=== PATIENT | female | born 1940 | race Caucasian/White ===

== ENCOUNTER → 2016-06-19 | Outpatient (CLI) | payer OTHER, BC ==
[~2016-06-19] MED LIST: ACETTAB14 PO; ALL100 PO; ASPI-113 PO; ATOR-24 PO; CHOL100010 PO; CLB200 PO; CLOP1TAB15 PO; DIPH25CA65 PO; DOCU100C PO; ISOS60TA25 PO; LEVO137T3 PO; LEVO150T9 PO; METO1TAB69 PO; METO50TA7 PO; NXM/40 PO; OXYC-643 PO; OXYC7.5T78 PO; VITA1TAB4 PO; VITA400C15 PO
[2016-06-19 12:17] LABS: BASO % 0.6 %; BASO ABS # 0.03 K/uL (0-0.2); COMPLETE YES; HEMATOCRIT 37.6 % (37-47); LYMPH % 35.6 %; LYMPH ABS # 1.79 K/uL (1.2-3.4); MEAN CORPUSCULAR HEMOGLOBIN 29.5 pg (25-34); MEAN CORPUSCULAR HGB CONC 32.4 g/dl (32-36); MEAN PLATELET VOLUME 11.4 fL (7.4-10.4); MONO % 8.7 %; NEUT % 50.1 %; PLATELET COUNT 152 K/uL (130-400); RED BLOOD COUNT 4.13 M/uL (4.2-5.4); WHITE BLOOD COUNT 5.03 K/uL (4.8-10.8)
[2016-06-19 12:38] LABS: ALT/SGPT 16 U/L (12-78); AST/SGOT 9 U/L (15-37); BLOOD UREA NITROGEN 37 mg/dl (7-18); BUN/CREATININE RATIO 18.6 (10-20); CALCIUM 9.6 mg/dl (8.5-10.1); CARBON DIOXIDE 25 mmol/L (21-32); CHLORIDE 112 mmol/L (98-107); GLUCOSE 89 mg/dl (70-99); POTASSIUM 4.9 mmol/L (3.5-5.1); SODIUM 145 mmol/L (136-145)
[2016-06-19 12:46] LABS: ALKALINE PHOSPHATASE 113 U/L (45-117); CHOLESTEROL 136 mg/dl (0-200); CHOLESTEROL/HDL RATIO 3.2; HDL CHOLESTEROL 42 mg/dl; LDL CHOLESTEROL CALCULATED 56 mg/dl; THYROID STIMULATING HORMONE 0.068 uIu/ml (0.300-4.500); TRIGLYCERIDES 189 mg/dl (0-150); VERY LOW DENSITY LIPOPROT CALC 38 mg/dl
[2016-06-19 12:58] LABS: ESTIMATED AVERAGE GLUCOSE 117 mg/dl; HA1C FLAG Normal (Normal)
--- NOTE | 2016-06-23 13:48 | CODING QUERY MEDICAL NECESSITY ---
SUPPORTING DIAGNOSIS NEEDED A supporting diagnosis is required for the test/procedure performed on this patient in order for us to be reimbursed by the patient's insurance. Please provide a supporting diagnosis for the following test/procedure listed below next to the test name along with your signature. *If there is no additional diagnosis for this patient that would support the following test/procedure please document that below next to the test/procedure. Test(s)/Procedure(s) that require a supporting diagnosis: DOS 06/19 * Vitamin D DIAGNOSIS: * Vitamin B12 DIAGNOSIS: * Hba1c DIAGNOSIS: * TSH DIAGNOSIS: Provider Signature: Date: Thank you Tiarra Culp Health Information Management Once completed, please kindly fax back to [phone] For questions please call [phone]
== END | disposition home or self-care (01) ==
LOC: C.LAB 11:39
PROVIDERS: ATTEND Internal Medicine
DX: Z00.00 Encounter for general adult medical examination without abnormal findings (principal); R53.83 Other fatigue; D64.9 Anemia, unspecified; R73.01 Impaired fasting glucose; E03.9 Hypothyroidism, unspecified

== ENCOUNTER 2016-10-08 21:48 | Inpatient (IN) | payer OTHER, BC ==
[~2016-10-08] VITALS: Ht 172.7 cm; Wt 93.3 kg
[~2016-10-08 21:48] MED LIST changes: -DOCU100C PO; -LEVO150T9 PO; -METO1TAB69 PO; -OXYC-643 PO; -VITA1TAB4 PO
[2016-10-08 21:53] VITALS: Ht 172.7 cm; Wt 93.3 kg
[2016-10-08] MEDS ORDERED: SODIUM CHLORIDE 0.9% 1000ML 1,000 ML IV STA (21:57)
[2016-10-08 22:03] LABS: HEMATOCRIT 37.7 % (37-47); MEAN CELL VOLUME 95.4 fL (80-100); MEAN CORPUSCULAR HEMOGLOBIN 28.1 pg (25-34); MEAN CORPUSCULAR HGB CONC 29.4 g/dl (32-36); MEAN PLATELET VOLUME 10.7 fL (7.4-10.4); PLATELET COUNT 208 K/uL (130-400); RED BLOOD COUNT 3.95 M/uL (4.2-5.4); WHITE BLOOD COUNT 8.88 K/uL (4.8-10.8)
[2016-10-08 22:13] LABS: INR 1.1 (0.9-1.1); PARTIAL THROMBOPLASTIN RATIO 0.8; PROTHROMBIN TIME (PATIENT) 11.4 SECONDS (9.0-12.0)
[2016-10-08 22:18] LABS: CREATININE 2.4 mg/dl (0.60-1.20); POTASSIUM 5.4 mmol/L (3.5-5.1)
[2016-10-08 22:24] LABS: CKMB/CK RATIO 3.3 (0-3.0)
[2016-10-08 22:26] LABS: CALCIUM 8.5 mg/dl (8.5-10.1)
--- NOTE | 2016-10-08 22:28 | EMERGENCY ROOM VISIT NOTE ---
History Report prepared by Mitchel: Marline Turner Under the Supervision of: Dr. Stuart Roland D.O. 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 The patient's family called EMS after the patient had sudden back pain. She then slumped down started having left sided weakness and facial droop. The patient has a history of AAA. She is on Plavix. The history is limited due to the patient's AMS. 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 Review of Systems See HPI for pertinent positives & negatives. A total of 10 systems reviewed and were otherwise negative. Past Medical & Surgical Medical Problems: (1) AAA (abdominal aortic aneurysm) (2) Atrial fibrillation by electrocardiogram (3) Atrial fibrillation with RVR Family History No pertinent family history stated. Social History Smoking Status: Former Smoker Alcohol Use: none Drug Use: none Marital Status: single Housing Status: lives with family Current/Historical Medications Scheduled Acetaminophen-Caffeine (Excedrin Tension Headache), 1 TAB PO DAILY Allopurinol (Allopurinol), 100 MG PO QAM Aspirin Enteric Coated (Ecotrin Or Generic), 325 MG PO QAM Atorvastatin (Lipitor), 40 MG PO QPM Celecoxib (Celebrex), 200 MG PO QAM Clopidogrel (Plavix), 75 MG PO QAM Docusate Sodium (Stool Softener), 100 MG PO DAILY Esomeprazole Magnesium (Nexium), 40 MG PO QAM Isosorbide Mononitrate Ext Rel (Imdur Ext Rel), 60 MG PO QAM Levothyroxine Sodium (Levothyroxine Sodium), 150 MCG PO QAM Metoprolol Succ (Toprol Xl) (Toprol-Xl), 50 MG PO QPM Metoprolol Succ (Toprol Xl) (Toprol-Xl ), 100 MG PO QAM Vitamin E (Vitamin E), 400 INTER.UNIT PO DAILY Scheduled PRN Diphenhydramine Hcl (Benadryl Allergy), 25 MG PO HS PRN for Sleep Oxycodone/Acetaminophen 5MG/325MG (Oxycodone/Acetaminophen 5MG/325MG), 1-2 TABLET PO Q6 PRN for Pain Allergies Coded Allergies: Amitriptyline (Unverified Adverse Reaction, Mild, drowsiness, 10/08/16) Gabapentin (Unverified Adverse Reaction, Mild, drowsiness, 10/08/16) Nortriptyline (Unverified Adverse Reaction, Unknown, sleeplessness, ) Physical Exam Vital Signs Date Time Temp Pulse Resp B/P (MAP) Pulse Ox O2 Delivery O2 Flow Rate FiO2 10/08/16 23:32 36.5 45 22 92/59 100 10/08/16 23:22 45 92/59 10/08/16 23:11 47 100 Nasal Cannula 5.0 82/41 10/08/16 23:01 47 22 89/63 10/08/16 23:00 48 10/08/16 22:41 36.5 53 30 97 Nasal Cannula 5.0 95/58 10/08/16 22:31 56 32 100 Nasal Cannula 5.0 153/104 10/08/16 22:15 74 10/08/16 22:15 36.6 65 28 86/40 97 Nasal Cannula 5.0 10/08/16 21:53 73 32 74/32 98 Nasal Cannula Physical Exam GENERAL: Patient is listless but responds to verbal commands. Patient is moaning in pain. EYES: The conjunctivae are clear. The pupils are round and reactive. EARS, NOSE, MOUTH AND THROAT: The nose is without any evidence of any deformity. Mucous membranes are moist tongue is midline NECK: The neck is nontender and supple. RESPIRATORY: Shallow respirations are noted. Diminished breath sounds noted throughout. No tachypnea was appreciated. CARDIOVASCULAR: Regular rate and rhythm noted there no murmurs rubs or gallops normal S1 normal S2 GASTROINTESTINAL: Abdomen is moderately distended and diffusely tender. MUSCULOSKELETAL/EXTREMITIES: There is no evidence of gross deformity full range of motion is noted in the hips and shoulders SKIN: Pedal edema was noted bilaterally. Skin is mottled especially in the lower extremities. Skin is cool and diaphoretic. Pulses were symmetric in the groin but diminished bilaterally. NEUROLOGIC: Patient was awake and alert. Patient appears to have diminished strength in the left upper extremity as well as left lower extremity. No facial droop is noted. Medical Decision & Procedures ER Provider Diagnostic Interpretation: Radiology results as stated below per my review and radiologist interpretation: HEAD CT NONCONTRAST CT DOSE: 3485.04 mGy.cm HISTORY: LEFT WEAKNESS TECHNIQUE: Multiaxial CT images of the head were performed without the use of intravenous contrast. Automated exposure control was utilized for this study. Comparison: None. Findings: The paranasal sinuses and mastoid air cells are clear. The calvarium and skull base are intact. There is no mass, hematoma, midline shift, acute infarct. White matter hypodensity is nonspecific but suggestive of microvascular ischemic change. The ventricles and sulci demonstrate mild age-related involutional changes. Impression: No acute intracranial abnormality. Electronically signed by: Yann Ortega M.D. 10/08/2016 10:41 PM Dictated Date/Time: 10/08/2016 10:38 PM CHEST, ABDOMEN, AND PELVIS CTA for AORTIC DISSECTION CT DOSE: HISTORY: TECHNIQUE: Multiaxial CT images of the chest , abdomen, and pelvis were performed both before and after the intravenous administration of contrast to evaluate the aorta. Maximal intensity projection images were also obtained. COMPARISON STUDY: Chest abdomen and pelvis CTA 07/11/2015. FINDINGS: No evidence for an aortic dissection. Tortuous distal thoracic aorta. 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 This is also unchanged. 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 Mild aneurysmal dilatation within the junction of the thoracic/abdominal aorta measuring up to 4 cm. There is been interval rupture of the patient's known abdominal aortic aneurysm. The aneurysm originates between the level of the renal arteries and extends to the bifurcation. The aneurysm measures a maximal diameter of 7.6 x 7.3 cm.. The aneurysm partially involves the right renal artery. There is also a smaller second left renal artery inferior to the takeoff of the main left renal artery on image 122 of 465 which originates from the aneurysm sac. This appears to feed the lower pole of the left kidney. The site of aneurysm rupture is along the right side of the aneurysm at the L2-L3 level. This measures approximately 3 cm in size and results in a large amount of predominantly right-sided retroperitoneal hemorrhage. The hemorrhage surrounds the right kidney. The right renal artery appears perfused. However, there may be slight diminished enhancement of the right kidney and comparison to the left. Bilateral iliac arteries remain perfused. There are 2 focal areas of mild stenosis measuring up to 50% within the right common iliac artery. The main pulmonary arteries are patent. No pleural or pericardial effusions. The heart remains mildly enlarged. No mediastinal or hilar lymphadenopathy. Poststernotomy changes. Elevation the right hemidiaphragm. No pneumothorax. Linear scarlike densities within the right lung apex. No focal lung consolidations to suggest pneumonia. Small patchy density within the right medial lung base favors atelectasis. This is also unchanged. No change in the low density 2 cm lesion within the body of the pancreas. The liver, spleen, and left adrenal gland are unremarkable. The right adrenal gland is obscured by the retroperitoneal hemorrhage. No change in the 4 cm left adnexal/ovarian cystic lesion. Normal bladder. Colonic diverticulosis. Left lower quadrant colostomy. No evidence for bowel obstruction. Normal gallbladder. IMPRESSION: 1. There has been interval rupture of the patient's abdominal aortic aneurysm as described above with a large amount of predominantly right-sided retroperitoneal hemorrhage. 2. There may be slight diminished perfusion of the right kidney comparison to the left. However, the visualized right renal artery appears perfused at this time. 3. Multiple additional findings as described above. 4. These findings were immediately discussed with Dr. Roland at 10:19 PM on 10/08/2016. Electronically signed by: Yann Ortega M.D. 10/08/2016 10:37 PM Dictated Date/Time: 10/08/2016 10:15 PM Laboratory Results 10/08/16 21:53 Red Blood Count 3.95, Mean Corpuscular Volume 95.4, Mean Corpuscular Hemoglobin 28.1, Mean Corpuscular Hemoglobin Concent 29.4, Mean Platelet Volume 10.7 10/08/16 21:53 Test 10/08/16 21:53 10/08/16 22:28 10/08/16 22:30 White Blood Count 8.88 K/uL (4.8-10.8) Red Blood Count 3.95 M/uL (4.2-5.4) Hemoglobin 11.1 g/dL (12.0-16.0) Hematocrit 37.7 % (37-47) Mean Corpuscular Volume 95.4 fL (80-100) Mean Corpuscular Hemoglobin 28.1 pg (25-34) Mean Corpuscular Hemoglobin Concent 29.4 g/dl (32-36) Platelet Count 208 K/uL (130-400) Mean Platelet Volume 10.7 fL (7.4-10.4) RDW Standard Deviation 49.7 fL (36.4-46.3) RDW Coefficient of Variation 14.2 % (11.5-14.5) Neutrophils % (Manual) 48.7 % Lymphocytes % (Manual) 28.8 % Monocytes % (Manual) 4.5 % Eosinophils % (Manual) 1.8 % Neutrophils # (Manual) 4.32 K/uL (1.4-6.5) Total Absolute Neutrophils 4.32 K/uL (1.4-6.5) Lymphocytes # (Manual) 2.56 K/uL (1.2-3.4) Total Absolute Lymphocytes 4.00 K/uL (1.2-3.4) Monocytes # (Manual) 0.40 K/uL (0.11-0.59) Eosinophils # (Manual) 0.16 K/uL (0-0.5) Percent Large Granular Lymphocytes 16.2 % Absolute Large Granular Lymphocytes 1.44 K/uL Red Blood Cell Morphology Unremarkable Prothrombin Time 11.4 SECONDS (9.0-12.0) Prothromb Time International Ratio 1.1 (0.9-1.1) Activated Partial Thromboplast Time 21.1 SECONDS (21.0-31.0) Partial Thromboplastin Ratio 0.8 Est Creatinine Clear Calc Drug Dose 23.1 ml/min Estimated GFR () 21.7 Estimated GFR (Non- 18.7 BUN/Creatinine Ratio 20.0 (10-20) Calcium Level 8.5 mg/dl (8.5-10.1) Total Bilirubin 0.3 mg/dl (0.2-1) Direct Bilirubin 0.1 mg/dl (0-0.2) Aspartate Amino Transf (AST/SGOT) 20 U/L (15-37) Alanine Aminotransferase (ALT/SGPT) 20 U/L (12-78) Alkaline Phosphatase 102 U/L (45-117) Total Creatine Kinase 36 U/L (26-192) Creatine Kinase MB 1.2 ng/ml (0.5-3.6) Creatine Kinase MB Ratio 3.3 (0-3.0) Troponin I 0.023 ng/ml (0-0.045) Total Protein 5.9 gm/dl (6.4-8.2) Albumin 2.8 gm/dl (3.4-5.0) Lipase 239 U/L (73-393) Bedside Hemoglobin 7.8 g/dl (12.0-16.0) Bedside Hematocrit 23 % (37-47) Bedside Sodium 140 mEq/L (135-144) Bedside Potassium 5.5 mEq/L (3.3-5.0) Bedside Chloride 111 mEq/L (101-112) Bedside Total CO2 17 mEq/l (24-31) Anion Gap 19.0 mmol/L (16-25) Bedside Blood Urea Nitrogen 45 mg/dl (7-18) Bedside Creatinine 2.0 mg/dl (0.6-1.3) Bedside Glucose (other) 192 mg/dl (70-99) Bedside Ionized Calcium (Z[place]) 1.21 mmol/l (1.12-1.32) Urine Color YELLOW Urine Appearance CLEAR (CLEAR) Urine pH 6.0 (4.5-7.5) Urine Specific [place] 1.022 (1.000-1.030) Urine Protein 1+ (NEG) Urine Glucose (UA) NEG (NEG) Urine Ketones NEG (NEG) Urine Occult Blood NEG (NEG) Urine Nitrite NEG (NEG) Urine Bilirubin NEG (NEG) Urine Urobilinogen NEG (NEG) Urine Leukocyte Esterase NEG (NEG) Urine WBC (Auto) 1-5 /hpf (0-5) Urine RBC (Auto) 0-4 /hpf (0-4) Urine Hyaline Casts (Auto) 1-5 /lpf (0-5) Urine Epithelial Cells (Auto) 20-30 /lpf (0-5) Urine Bacteria (Auto) NEG (NEG) Laboratory results per my review. Medications Administered Medications (Trade) Dose Ordered Sig/John Route Start Time Stop Time Status Last Admin Dose Admin Sodium Chloride 1,000 ml @ 999 mls/hr Q1H1M STAT IV 10/08/16 21:57 10/08/16 22:57 DC 10/08/16 22:08 999 MLS/HR Ondansetron HCl (Zofran Inj) 4 mg NOW STAT IV 10/08/16 22:32 10/08/16 22:33 DC 10/08/16 22:38 4 MG Morphine Sulfate (MoRPHine SULFATE INJ) 4 mg STK-MED ONCE .ROUTE 10/08/16 22:34 10/08/16 22:35 DC 10/08/16 22:39 4 MG ECG Indication: back/shoulder pain Rate (beats per minute): 63 Rhythm: sinus bradycardia Findings: nonspecific-ST abn (diffuse), no ectopy, other (poor R wave progression) Comparison ECG Date: 11-Jul-2015 Change: Decreased rate, otherwise no significant change. ED Course 2149: The patient was evaluated in room B1. A complete history and physical examination were performed. 2156: NSS 1000 ml @ 999 mls/hr IV. 2212: I discussed the patient's case with Dr. Villanueva, [facility] vascular surgery. The patient will be evaluated for further management. 2229: I reevaluated the patient. I discussed results and treatment plan with her and her daughter. They verbalized agreement and understanding. The patient will be evaluated for further management and care. 2232: Zofran Inj 4 mg IV. 2234: Morphine Sulfate 4 mg IV. Medical Decision Prior records/ancillary studies reviewed. Triage Nursing notes reviewed. Additional history obtained from the prehospital personnel as well as the patient's family members. The patient's history was concerning for abdominal pain. Differential diagnosis: Etiologies such as appendicitis, diverticulitis, PUD, biliary pathology, UTI, pancreatitis, obstruction, mesenteric ischemia, aortic pathology, infections, inflammatory bowel disease, renal colic, as well as others were entertained. Medication Reconciliation: I attest that I have personally reviewed the patient' s current medications list. The patient is a 76-year-old female who presented to the emergency department for an evaluation of back pain. Additional history is obtained from the prehospital personnel via a medic command call. I was contacted by the instrument specialist who was on scene because they felt the patient may have a ruptured AAA. The patient has a history of an abdominal aortic aneurysm and they were called to the patient's house this evening by family members because of an acute onset of tearing back pain which was accompanied by fluctuating blood pressure and weakness on the left side. Reportedly the patient had facial droop as well as left-sided weakness although on physical exam she did not have a definite facial droop but did have some asymmetry between her right and left sides. At this time I think this reflects the severe hypotension as well as acute hemorrhage with the ruptured AAA and I do not feel this represents extension into the carotids or into the thoracic aorta. The patient was treated with an IV fluid bolus as well as IV pain medication. She was also given a blood transfusion. The patient was reevaluated multiple times. I discussed her case with the on-call vascular surgeon who is also familiar with her case and has evaluated her in the past. Previously the patient did not wish to have surgical intervention and it was also not completely recommended because of the proximity to the renal arteries. At this time the patient appears to have rupture of her abdominal aortic aneurysm and require surgical intervention immediately. The patient was evaluated by the vascular surgeon in the emergency department and was felt to be a candidate for surgical intervention. I discussed the patient's laboratory radiographic studies with her and her daughter. Consults Time Called: 2199 Consulting Physician: Dr. Villanueva, [facility] vascular surgery Returned Call: [phone] I discussed the patient's case with him. The patient will be evaluated for further management. Impression Primary Impression: Ruptured abdominal aortic aneurysm (AAA) Additional Impressions: Hypotension Left-sided weakness Back pain Critical Care I have personally spent greater than 50 minutes of critical care time in the direct management of this patient. This includes bedside care, interpretation of diagnostic studies, and testing, discussion with consultants, patient, and family members, and other required patient management activities. This 50 minutes is in excess of all separately billable procedures. Scribe Attestation The scribe's documentation has been prepared under my direction and personally reviewed by me in its entirety. I confirm that the note above accurately reflects all work, treatment, procedures, and medical decision making performed by me. Departure Information Dispostion Being Evaluated By Surgeon Brent Randall M.D. (PCP) Problem Qualifiers
[2016-10-08] MEDS ORDERED: ONDANSETRON INJ 2 MG/ML 2 ML VIAL IV STA (22:32)
[2016-10-08] MEDS ORDERED: MoRPHine SULFATE 4 MG/ML 1 ML CARP\\VIAL ONE (22:34)
--- NOTE | 2016-10-08 22:39 | DIAGNOSTIC IMAGING REPORT ---
CHEST, ABDOMEN, AND PELVIS CTA for AORTIC DISSECTION CT DOSE: HISTORY: TECHNIQUE: Multiaxial CT images of the chest , abdomen, and pelvis were performed both before and after the intravenous administration of contrast to evaluate the aorta. Maximal intensity projection images were also obtained. COMPARISON STUDY: Chest abdomen and pelvis CTA 07/11/2015. FINDINGS: No evidence for an aortic dissection. Tortuous distal thoracic aorta. 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 This is also unchanged. 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 Mild aneurysmal dilatation within the junction of the thoracic/abdominal aorta measuring up to 4 cm. There is been interval rupture of the patient's known abdominal aortic aneurysm. The aneurysm originates between the level of the renal arteries and extends to the bifurcation. The aneurysm measures a maximal diameter of 7.6 x 7.3 cm.. The aneurysm partially involves the right renal artery. There is also a smaller second left renal artery inferior to the takeoff of the main left renal artery on image 122 of 465 which originates from the aneurysm sac. This appears to feed the lower pole of the left kidney. The site of aneurysm rupture is along the right side of the aneurysm at the L2-L3 level. This measures approximately 3 cm in size and results in a large amount of predominantly right-sided retroperitoneal hemorrhage. The hemorrhage surrounds the right kidney. The right renal artery appears perfused. However, there may be slight diminished enhancement of the right kidney and comparison to the left. Bilateral iliac arteries remain perfused. There are 2 focal areas of mild stenosis measuring up to 50% within the right common iliac artery. The main pulmonary arteries are patent. No pleural or pericardial effusions. The heart remains mildly enlarged. No mediastinal or hilar lymphadenopathy. Poststernotomy changes. Elevation the right hemidiaphragm. No pneumothorax. Linear scarlike densities within the right lung apex. No focal lung consolidations to suggest pneumonia. Small patchy density within the right medial lung base favors atelectasis. This is also unchanged. No change in the low density 2 cm lesion within the body of the pancreas. The liver, spleen, and left adrenal gland are unremarkable. The right adrenal gland is obscured by the retroperitoneal hemorrhage. No change in the 4 cm left adnexal/ovarian cystic lesion. Normal bladder. Colonic diverticulosis. Left lower quadrant colostomy. No evidence for bowel obstruction. Normal gallbladder. IMPRESSION: 1. There has been interval rupture of the patient's abdominal aortic aneurysm as described above with a large amount of predominantly right-sided retroperitoneal hemorrhage. 2. There may be slight diminished perfusion of the right kidney comparison to the left. However, the visualized right renal artery appears perfused at this time. 3. Multiple additional findings as described above. 4. These findings were immediately discussed with Dr. Roland at 10:19 PM on 10/08/2016. Electronically signed by: Yann Ortega M.D. 10/08/2016 10:37 PM Dictated Date/Time: 10/08/2016 10:15 PM
[2016-10-08 22:41] LABS: ISTAT HEMOGLOBIN 7.8 g/dl (12.0-16.0); ISTAT IONIZED CALCIUM 1.21 mmol/l (1.12-1.32)
--- NOTE | 2016-10-08 22:42 | DIAGNOSTIC IMAGING REPORT ---
HEAD CT NONCONTRAST CT DOSE: 3485.04 mGy.cm HISTORY: LEFT WEAKNESS TECHNIQUE: Multiaxial CT images of the head were performed without the use of intravenous contrast. Automated exposure control was utilized for this study. Comparison: None. Findings: The paranasal sinuses and mastoid air cells are clear. The calvarium and skull base are intact. There is no mass, hematoma, midline shift, acute infarct. White matter hypodensity is nonspecific but suggestive of microvascular ischemic change. The ventricles and sulci demonstrate mild age-related involutional changes. Impression: No acute intracranial abnormality. Electronically signed by: Yann Ortega M.D. 10/08/2016 10:41 PM Dictated Date/Time: 10/08/2016 10:38 PM
[2016-10-08] MEDS ORDERED: MoRPHine SULFATE 4 MG/ML 1 ML CARP\\VIAL IV PRN (22:45)
[2016-10-08 22:47] LABS: URINE APPEARANCE CLEAR (CLEAR); URINE BILIRUBIN NEG (NEG); URINE COLOR YELLOW; URINE EPITHELIAL CELL AUTO 20-30 /lpf (0-5); URINE NITRITE NEG (NEG); URINE SPECIFIC GRAVITY 1.022 (1.000-1.030); UROBILINOGEN NEG (NEG)
[2016-10-08 22:48] LABS: MANUAL MICROSCOPIC REQUIRED? NO; REVIEW REQ? NO
--- NOTE | 2016-10-08 22:50 | Progress Note ---
Progress Note Date of Service Oct 08, 2016. Progress Note Patient with ruptured AAA. Recommend OR repair. Patients family understands and agrees to the procedure.
[2016-10-08] MEDS ORDERED: METO1TAB69 PO (22:58)
[2016-10-08] MEDS ORDERED: LEVO150T9 PO (22:58)
[2016-10-08] MEDS ORDERED: OXYC-643 PO (22:59)
[2016-10-08] MEDS ORDERED: VITA1TAB4 PO (23:01)
[2016-10-08] MEDS ORDERED: DOCU100C PO (23:01)
[2016-10-08] MEDS ORDERED: GELATIN SPONGE SZ 100 ONE (23:06)
[2016-10-08] MEDS ORDERED: HEPARIN SOD (PORCINE) 1000 UNIT/ML 10 ML VIAL ONE ×2 (23:06→23:17)
[2016-10-08] MEDS ORDERED: CEFAZOLIN SOD 1 GM VIAL ONE (23:06)
[2016-10-08] MEDS ORDERED: THROMBIN 5000 UNITS KIT ONE (23:06)
[2016-10-08 23:23] LABS: COMPLETE YES; EOSINOPHIL % 1.8 %; LARGE GRANULAR LYMPH ABSOLUTE 1.44 K/uL; LARGE GRANULAR LYMPHOCYTE % 16.2 %; LYMPH ABS # 2.56 K/uL (1.2-3.4); LYMPHOCYTE % 28.8 %; NEUTROPHILS % 48.7 %
[2016-10-08 23:32] VITALS: BP 92/59; PULSE 45; TEMP 36.5; O2SAT 100
[2016-10-08] MEDS ORDERED: THROMBIN FOR SOLN 20000 UNIT KIT ONE (23:52)
[2016-10-09] MEDS ORDERED: BUPIVACAINE 0.5 % 5 MG/1 ML MPF 30ML VIAL ONE (00:01)
[2016-10-09] MEDS ORDERED: ROCURONIUM BROMID 50MG/5ML SYR ONE ×2 (00:26→02:33)
[2016-10-09] MEDS ORDERED: SUCCINYLCHOLINE 100MG/5ML SYR IV ONE (00:26)
[2016-10-09] MEDS ORDERED: ETOMIDATE 2 MG/ML 20 ML VIAL IV ONE (00:26)
[2016-10-09] MEDS ORDERED: CEFAZOLIN SOD 1 GM VIAL ONE ×3 (00:27→05:40)
[2016-10-09] MEDS ORDERED: ESMOLOL HCL 10 MG/ML 10 ML VIAL ONE ×4 (00:27→02:18)
[2016-10-09] MEDS ORDERED: NITROGLYCERIN/D5W 100 MCG/ML BTL ONE (00:27)
[2016-10-09] MEDS ORDERED: EpINEphrine INJ 1MG/ML AMP 1 MG/ML AMP ONE ×2 (00:27→08:45)
[2016-10-09] MEDS ORDERED: CALCIUM CHLORIDE 10% 10 ML SYR ONE (00:49)
[2016-10-09 01:05] LABS: HEMATOCRIT 18.9 % (37-47)
[2016-10-09] MEDS ORDERED: SODIUM CHLORIDE 0.9% INJ 10 ML VIAL ONE (01:16)
[2016-10-09] MEDS ORDERED: ROCURONIUM BROMIDE 10 MG/ML 5 ML VIAL ONE ×2 (02:21→02:33)
[2016-10-09] MEDS ORDERED: HEPARIN SOD (PORCINE) 1000 UNIT/ML 10 ML VIAL ONE (02:49)
[2016-10-09] MEDS ORDERED: NOREPINEPHRINE BITARTRATE 1 MG/ML 4 ML VIAL ONE (03:53)
[2016-10-09] MEDS ORDERED: NovoLIN-R INSULIN PER UNIT CHARGE ONE (05:41)
--- NOTE | 2016-10-09 08:03 | [facility] Post Operative Brief Note ---
Immediate Operative Summary Operative Date Oct 09, 2016. Pre-Operative Diagnosis Ruptured AAA Post-Operative Diagnosis Same Procedure(s) Performed Ligation of abdominal aorta Right axillo bifemoreal bypass Surgeon alexei Violin Restorer Surgeon(s) none Estimated Blood Loss 6000 Findings ruptured aorta Specimens none Anesthesia Gen Complication(s) in ICU
--- NOTE | 2016-10-09 08:07 | History and Physical ---
History & Physical Date Oct 09, 2016. Chief Complaint Back pain History of Present Illness The patient is a 76 year old female with a known AAA. Found to be ruptured at this time. Vitals Vital Signs Past 12 Hours Date Time Temp Pulse Resp B/P (MAP) Pulse Ox O2 Delivery O2 Flow Rate FiO2 10/08/16 23:32 36.5 45 22 92/59 100 10/08/16 23:22 45 92/59 10/08/16 23:11 47 100 Nasal Cannula 5.0 82/41 10/08/16 23:01 47 22 89/63 10/08/16 23:00 48 10/08/16 22:41 36.5 53 30 97 Nasal Cannula 5.0 95/58 10/08/16 22:31 56 32 100 Nasal Cannula 5.0 153/104 10/08/16 22:15 74 10/08/16 22:15 36.6 65 28 86/40 97 Nasal Cannula 5.0 10/08/16 21:53 73 32 74/32 98 Nasal Cannula Allergies Coded Allergies: Amitriptyline (Unverified Adverse Reaction, Mild, drowsiness, 10/08/16) Gabapentin (Unverified Adverse Reaction, Mild, drowsiness, 10/08/16) Nortriptyline (Unverified Adverse Reaction, Unknown, sleeplessness, ) Home Medications Scheduled Acetaminophen-Caffeine (Excedrin Tension Headache), 1 TAB PO DAILY Allopurinol (Allopurinol), 100 MG PO QAM Aspirin Enteric Coated (Ecotrin Or Generic), 325 MG PO QAM Atorvastatin (Lipitor), 40 MG PO QPM Celecoxib (Celebrex), 200 MG PO QAM Clopidogrel (Plavix), 75 MG PO QAM Docusate Sodium (Stool Softener), 100 MG PO DAILY Esomeprazole Magnesium (Nexium), 40 MG PO QAM Isosorbide Mononitrate Ext Rel (Imdur Ext Rel), 60 MG PO QAM Levothyroxine Sodium (Levothyroxine Sodium), 150 MCG PO QAM Metoprolol Succ (Toprol Xl) (Toprol-Xl), 50 MG PO QPM Metoprolol Succ (Toprol Xl) (Toprol-Xl ), 100 MG PO QAM Vitamin E (Vitamin E), 400 INTER.UNIT PO DAILY Scheduled PRN Diphenhydramine Hcl (Benadryl Allergy), 25 MG PO HS PRN for Sleep Oxycodone/Acetaminophen 5MG/325MG (Oxycodone/Acetaminophen 5MG/325MG), 1-2 TABLET PO Q6 PRN for Pain Problem List Medical Problems: (1) AAA (abdominal aortic aneurysm) (2) Atrial fibrillation by electrocardiogram (3) Atrial fibrillation with RVR Surgical / Medical History Hx Cancer Surgery: No Hx Thoracic Surgery: No Hx Orthopedic: Yes (L TKA, RIGHT TKA,) Hx Urinary Tract Surgery: No Past Medical/Surgical History: Cancer, CABG, Heart Disease, Hypertension, Kidney Disease Social History Smoking Status: Former Smoker Hx Tobacco Use In Past Year?: No (QUIT 1995) Hx Alcohol Use - Type & Amnt: No Hx Substance Use -Type & Amnt: No Review of Systems Additional Comments: unobtainable Physical Exam Constitutional: General Apperance: overweight Level of Distress: acutely ill Ambulation: ambulating normally Psychiatric: Orientation: oriented except where noted Neck: supple Lungs: Auscultation: breath sounds normal Cardiovascular: Heart Auscultation: RRR Peripheral Pulses: Carotid Pulse: normal on the left, normal on the right Brachial Pulses: normal on the left, normal on the right Radial Pulse: normal on the left, normal on the right Abdomen: Inspection & Palpation: distended, LUQ tenderness, RUQ tenderness, LLQ tenderness, RLQ tenderness, suprapubic tenderness, rebound tenderness Musculoskeletal: normal Extremities: Upper Right: no cyanosis, no edema, no varicosities, no palpable cord, no clubbing, no ulcers, no mottling Upper Left: no cyanosis, no edema, no varicosities, no palpable cord, no clubbing, no ulcers, no mottling Lower Right: no cyanosis, no edema, no varicosities, no palpable cord, no clubbing, no ulcers, no mottling Lower Left: no cyanosis, no edema, no varicosities, no palpable cord, no clubbing, no ulcers, no mottling Neurologic: Cranial Nerves: grossly intact Sensation: grossly intact Assessment and Plan Imp: Ruptured AAA Plan: patient for emergency AAA repair.
[2016-10-09] MEDS ORDERED: NURSING VERBAL MED ORDER ONE (08:30)
--- NOTE | 2016-10-09 08:37 | Death Pronouncement Note ---
Pronouncement Note Date & Time of Oct 09, 2016. 0834 Pronouncement At time of pronouncement the patients pupils were fixed and dilated, there was no spontaneous respiratory effort, no palpable pulse, no audible heart tones, and no response to pain or voice.
[2016-10-09] MEDS ORDERED: VASOPRESSIN 20 UNIT/ML VIAL ONE (08:45)
--- NOTE | 2016-10-09 08:49 | Anesthesiology Progress Note ---
Anesthesia Post Op Note Date & Time Oct 09, 2016 at 08:41 Vital Signs Pain Intensity: 10.0 Vital Signs Past 12 Hours Date Time Temp Pulse Resp B/P (MAP) Pulse Ox O2 Delivery O2 Flow Rate FiO2 10/08/16 23:32 36.5 45 22 92/59 100 10/08/16 23:22 45 92/59 10/08/16 23:11 47 100 Nasal Cannula 5.0 82/41 10/08/16 23:01 47 22 89/63 10/08/16 23:00 48 10/08/16 22:41 36.5 53 30 97 Nasal Cannula 5.0 95/58 10/08/16 22:31 56 32 100 Nasal Cannula 5.0 153/104 10/08/16 22:15 74 10/08/16 22:15 36.6 65 28 86/40 97 Nasal Cannula 5.0 10/08/16 21:53 73 32 74/32 98 Nasal Cannula Notes Procedure involved approximately 15L of blood loss with continued bleeding and probable DIC. Majority of hospital blood supply exhausted through case and further blood products still pending by procedure end despite continued copious bleeding in to wound vac. High dose pressors drips of norepinephrine, phenylephrine, and vasopressin ineffective to support MAP due to continued blood loss and worsening acidosis despite aggressive treatment. Dr Villanueva spoke with the family regarding considering comfort measures at that point and the family agreed, however aggressive care was continued to transport the patient out of the OR and to the ICU including ACLS measures for 2 episodes of VTach and 1 episode of PEA. On arrival to ICU, MAP was in 30s with patient developing wide complex bradycardia. The family was called to bedside and wished to stop pressor and ventilator support and this was instituted. This was instituted at 8:26 and the patient passed at 8:34 with family at bedside. Dr Villanueva pronounced the patient.
[2016-10-09 08:59] LABS: ISTAT ARTERIAL BLOOD GAS HCO3 23 meq/L (19-24); ISTAT ARTERIAL BLOOD GAS PCO2 39 mmHg (35-46); ISTAT ARTERIAL BLOOD GAS PO2 372 mmHg (80-95); ISTAT ARTERIAL BLOOD GAS pH 7.39 (7.35-7.45); ISTAT CARBON DIOXIDE 25 mEq/l (24-31)
[2016-10-09 08:59] LABS: ISTAT ARTERIAL BLOOD GAS HCO3 21 meq/L (19-24); ISTAT ARTERIAL BLOOD GAS PCO2 50 mmHg (35-46); ISTAT ARTERIAL BLOOD GAS PO2 311 mmHg (80-95); ISTAT ARTERIAL BLOOD GAS pH 7.24 (7.35-7.45); ISTAT CARBON DIOXIDE 23 mEq/l (24-31)
[2016-10-09 08:59] LABS: ISTAT ARTERIAL BLOOD GAS HCO3 11 meq/L (19-24); ISTAT ARTERIAL BLOOD GAS PCO2 40 mmHg (35-46); ISTAT ARTERIAL BLOOD GAS PO2 > 420 mmHg (80-95); ISTAT ARTERIAL BLOOD GAS pH 7.06 (7.35-7.45); ISTAT CARBON DIOXIDE 12 mEq/l (24-31)
[2016-10-09 08:59] LABS: ISTAT HEMOGLOBIN 5.4 g/dl (12.0-16.0); ISTAT IONIZED CALCIUM 0.56 mmol/l (1.12-1.32)
[2016-10-09 09:00] LABS: ISTAT CREATININE 0.9 mg/dl (0.6-1.3); ISTAT HEMOGLOBIN 6.1 g/dl (12.0-16.0); ISTAT IONIZED CALCIUM 0.49 mmol/l (1.12-1.32)
[2016-10-09 09:00] LABS: ISTAT CREATININE 1.1 mg/dl (0.6-1.3); ISTAT HEMOGLOBIN 9.5 g/dl (12.0-16.0); ISTAT IONIZED CALCIUM 1.07 mmol/l (1.12-1.32)
[2016-10-09 09:00] LABS: ISTAT ARTERIAL BLOOD GAS HCO3 14 meq/L (19-24); ISTAT ARTERIAL BLOOD GAS PCO2 34 mmHg (35-46); ISTAT ARTERIAL BLOOD GAS PO2 278 mmHg (80-95); ISTAT ARTERIAL BLOOD GAS pH 7.21 (7.35-7.45); ISTAT CARBON DIOXIDE 15 mEq/l (24-31)
[2016-10-09 09:00] LABS: ISTAT ARTERIAL BLOOD GAS HCO3 6 meq/L (19-24); ISTAT ARTERIAL BLOOD GAS PCO2 42 mmHg (35-46); ISTAT ARTERIAL BLOOD GAS PO2 232 mmHg (80-95); ISTAT ARTERIAL BLOOD GAS pH 6.79 (7.35-7.45); ISTAT CARBON DIOXIDE 8 mEq/l (24-31)
[2016-10-09] MEDS ORDERED: MoRPHine SULFATE 10 MG/ML CARP/VIAL IV ONE (09:00)
[2016-10-09] MEDS ORDERED: SODIUM BICARB 8.4% INJ 50 MEQ/50 ML SYR IV ONE (09:39)
[2016-10-09] MEDS ORDERED: CALCIUM CHLORIDE 10% 10 ML SYR IV ONE (09:39)
--- NOTE | 2016-10-20 13:01 | Progress Note ---
Progress Note Date of Service Oct 20, 2016. Progress Note General Contractor: Although I was consulted on this patient, she was transferred to the ICU for comfort care and shortly after arrival. I did not see her. Please do not charge the patient for a consultation.
--- NOTE | 2016-10-21 08:52 | Death Summary ---
Summary of Admission Date Oct 09, 2016 at 08:20 Date & Time of Oct 09, 2016. 0834 Cause of Ruptured AAA Hospital Course Patient was admitted with a ruptured AAA. She underwent emergency surgery. The aneurysm involved one renal artery. The aorta was very friable and could not hold the sutures of the graft. The aorta was therefore ligated, Abdomen closed with a wound vac and an ax bifem performed. She succumbed from hemorrhage from her ruptured AAA soon after being admitted to the ICU
--- NOTE | 2016-11-25 11:38 | OPERATIVE REPORT ---
DATE OF OPERATION: 10/09/2016 PREOPERATIVE DIAGNOSIS: Ruptured abdominal aortic aneurysm. POSTOPERATIVE DIAGNOSIS: Same. PROCEDURE: Ligation of aorta, right axillobifemoral bypass grafting. SURGEON: Dr. Villanueva. ANESTHETIC: General endotracheal. PROCEDURE INDICATIONS: The patient is a 76-year-old female with a known abdominal aortic aneurysm. She was brought to the Emergency Room and found to have a ruptured abdominal aortic aneurysm. She was not an endovascular candidate. Repair was recommended. The family understood the risks, options and benefits and agreed to have this procedure. The patient was taken to the operating room and placed in supine position. After the abdomen was prepped and draped in a sterile manner. A midline abdominal incision was made. This was carried down through the midline fascia. The abdominal cavity was entered. There was a large extensive amount of retroperitoneal blood present. She had extensive adhesions from her previous upper abdominal surgery in the past. The aneurysm itself was large, rupture was approximately 9-10 cm in size. The proximal aorta curved and the aneurysm ran up and involved at least the left renal artery. Control of the iliacs was obtained. We then tried to obtain proximal control. This was more difficult due to the angulation of the aorta towards the liver. Finally managed to get control. The aneurysm sac was then opened. It was fairly large, half dollar size rupture. The aorta was transected. We tried to sew in a 20 cm graft. The aortic wall was very thin and flimsy. After sewing the graft aorta subsequently tore in the back wall. It was decided at this point being that she required a lot of fluids and transfusions that we would ligate the aorta and try to get her out of the operating room with an axbifem. We did do a ligation of the iliacs on both sides. The aorta proximally was ligated with a 3-0 Prolene suture with 2 layers. This held fairly well with no significant bleeding seen. At that point we decided to close the wound with a wound VAC. Abdominal wound VAC was brought to the operative field. It was applied in normal fashion to the abdominal incision. At that point I went and talked to the family being that she was not doing well and they wanted to continue with bypass into the lower extremities to try and salvage the legs if she survived. At that point the patient was reprepped and redraped. Incision was made in both groins as well as the infraclavicular area on the right side. The axillary artery was identified. A tunnel was made from the axillary down the groin incisions which were used to expose the femoral arteries on both sides. The Tafton-Norris bifurcated axillobifemoral graft was then brought to the operative field and passed through the tunnel. At that point the axillary artery on the right side was clamped proximal and distally. A transverse arteriotomy was then made. The graft was then beveled and end-to-side anastomosis was accomplished at that point. Clamp was then placed on the graft and the axillary artery to the right arm was unclamped. The right femoral artery was then clamped proximally and distally. Longitudinal arteriotomy was then made. There was moderate plaque seen. The proximal anastomosis was then accomplished between the right limb of the graft in the femoral artery using a CV5 Tafton-Norris suture in the usual vascular fashion. Backbleeding and forward bleeding was allowed to occur and the final few sutures were placed and securely tied. The same thing was done on the left side. The left femoral artery also had moderate calcifications. The graft was tunneled from the counterincision in the right flank to the right lower abdomen over to the left groin. Once this anastomosis was completed in the usual vascular fashion clamps were removed. She tolerated the unclamping at that point the lower pressures were still hypotensive. The wounds were then closed. At that point she had generalized oozing. Numerous blood plasma and platelet transfusions were given. Wounds were closed with a running 2-0 Vicryl suture for the femoral sheath, 3-0 Vicryl for the subcutaneous layer. All wounds and yahir for the skin. The patient was transported directly to the intensive care unit in critical condition. I attest to the content of the Intraoperative Record and any orders documented therein. Any exceptions are noted below. SLOAND
== END 2016-10-09 09:40 | disposition expired | DRG 269 ==
LOC: EDBD 21:48 → C.EDB 21:49 → C.MSICU 10-09 08:20 → UNDOADMIN 10-09 08:22 → UNDODISIN 10-09 09:40
PROVIDERS: ADMIT Surgery Vascular Surgery; ATTEND Surgery Vascular Surgery
PROC: 04L Lower Arteries, Occlusion (ICD-10-PCS; principal; 2016-10-09)
PROC: 04RK0JZ Replacement of Right Femoral Artery with Synthetic Substitute, Open Approach (ICD-10-PCS; principal; 2016-10-09)
DX: I71.3 Abdominal aortic aneurysm, ruptured (principal); I48.91 Unspecified atrial fibrillation; I95.9 Hypotension, unspecified; Z87.891 Personal history of nicotine dependence; Z79.82 Long term (current) use of aspirin; Z51.5 Encounter for palliative care